=== PATIENT | female | born 1985 | race Caucasian/White ===

== ENCOUNTER 2024-09-05 17:46 | Emergency (ER) | payer SELFPAY ==
[2024-09-05 20:36] LABS: Absolute Basophils 0.1 K/uL (0-0.5); Absolute Eosinophils 0.2 K/uL (0-0.5); Absolute Lymphocytes (CBC) 2.7 K/uL (0.7-4.9); Absolute Monocytes 1.1 K/uL (0.1-1.3); Absolute Neutrophil 9.2 K/uL (1.8-8.0); Basophils % 0.8 % (0-1.3); Eosinophils % 1.3 % (0-4.4); Hematocrit 43.3 % (36.0-45.0); Hemoglobin 14.6 g/dL (12.0-15.0); Lymphocytes % 20.2 % (15.3-44.8); MCH 29.2 pg (27.0-35.0); MCHC 33.8 g/dL (32.0-36.0); MCV 86.3 fL (80-100); MPV 8.8 fL (7.6-11.3); Monocytes % 8.3 % (3.3-12.3); Neutrophils % 69.4 % (41.7-73.7); Nucleated Red Blood Cells % 0.1 % (0-0); Platelets 270 thou/uL (152-406); RBC Red Blood Cell Count 5.02 M/uL (3.86-4.86); Red Cell Distribution Width 13.6 % (12.1-15.2)
[2024-09-05 20:53] LABS: Specific Gravity 1.021 (1.005-1.030)
[2024-09-05 21:00] LABS: Anion Gap 7.5 mEq/L (5.0-15.0)
[2024-09-05 21:12] LABS: Potassium 4.5 mEq/L (3.5-5.1)
--- NOTE | 2024-09-05 22:18 | RAD REPORT ---
Pelvis Complete CLINICAL INDICATION: Female 38 years old pain and vag bleed TECHNIQUE: Real-time ultrasonography of the pelvis was performed transabdominally. Color and spectral Doppler evaluation of the ovaries was performed. [id number]. COMPARISON: No prior exam. FINDINGS: UTERUS AND CERVIX: The uterus measures 8.6 x 4.4 x 4.8 cm (cervix to fundus x AP x transverse). The u terus is normal. No masses seen . The endometrium is normal,6 mm thickness. RIGHT OVARY: Normal The right ovary measures 4.6 x 2.2 x 2 cm with volume of 10.2 mL. Normal color an d spectral Doppler evaluation of the right ovary.. LEFT OVARY: Normal The left ovary measures 3.9 x 3.2 x 2.8 cm with volume of 18 mL. Normal Color an d spectral Doppler evaluation of the left ovary.. FREE FLUID: No free fluid. IMPRESSION: 1. No acute findings identified.. 2. Bilateral ovarian blood flow.
--- NOTE | 2024-09-05 22:49 | EDPHYS ---
Physician Documentation [facility] Name: Erma Renteria Age: 38 yrs Sex: Female : 1985 Arrival Date: 09/05/2024 Time: 17:46 Bed 10 Private MD: ED Physician Kurt Correa HPI: 09/05 19:09 This 38 yrs old Female presents to ER via Ambulatory with complaints of gb1 Vaginal Bleeding, Dizziness, Lightheaded. 19:09 38-year-old female with vaginal bleeding that started a few days ago she has gb1 been dizzy and more lightheaded. Patient states that she has irregular periods at her baseline. She is sexually active but not vaginal intercourse. Patient has not any control agents. She denies any vaginal discharge. She states that she has been bleeding for more than a few days and longer than usual. She is never seen an REGISTERED NURSE HH CASE MANAGER and she is never had a Pap smear. She is sexually active with her .. 09/06 19:14 Patient care assumed from Dr. Bonilla. Patient complains of some pelvic pain and sp4 moderate to heavy vaginal bleeding. Patient states she is desiring ultrasound to evaluate for ovarian cysts and other pelvic problems.. REGISTERED NURSE HH CASE MANAGER: 09/05 18:37 LMP 09/03/2024, unknown ap3 Historical: - Allergies: 18:34 No Known Allergies; ap3 - PMHx: 18:34 Anxiety; Asthma; Depression; ap3 - PSHx: 18:34 Cholecystectomy; ap3 - Immunization history:: Client reports having NOT received the Covid vaccine. Flu vaccine is not up to date. - Infectious Disease History:: Denies. - Social history:: Smoking status: Patient denies any tobacco usage or history of. - Family history:: not pertinent. ROS: 09/06 19:14 Constitutional: Negative for fever, chills, and weight loss, positive pelvic pain, sp4 positive vaginal bleeding, positive dizziness. All other systems are negative, Exam: 09/05 19:09 Constitutional: This is a well developed, well nourished patient who is awake, alert, gb1 and in no acute distress. Head/Face: Normocephalic, atraumatic. Eyes: Pupils equal round and reactive to light, extra-ocular motions intact. Lids and lashes normal. Conjunctiva and sclera are non-icteric and not injected. Cornea within normal limits. Periorbital areas with no swelling, redness, or edema. ENT: Nares patent. No nasal discharge, no septal abnormalities noted. Tympanic membranes are normal and external auditory canals are clear. Oropharynx with no redness, swelling, or masses, exudates, or evidence of obstruction, uvula midline. Mucous membranes moist. Neck: Trachea midline, no thyromegaly or masses palpated, and no cervical lymphadenopathy. Supple, full range of motion without nuchal rigidity, or vertebral point tenderness. No Meningismus. Chest/axilla: Normal chest wall appearance and motion. Nontender with no deformity. No lesions are appreciated. Cardiovascular: Regular rate and rhythm with a normal S1 and S2. No gallops, murmurs, or rubs. Normal PMI, no JVD. No pulse deficits. Respiratory: Lungs have equal breath sounds bilaterally, clear to auscultation and percussion. No rales, rhonchi or wheezes noted. No increased work of breathing, no retractions or nasal flaring. Back: No spinal tenderness. No costovertebral tenderness. Full range of motion. Skin: Warm, dry with normal turgor. Normal color with no rashes, no lesions, and no evidence of cellulitis. MS/ Extremity: Pulses equal, no cyanosis. Neurovascular intact. Full, normal range of motion. Neuro: Awake and alert, GCS 15, oriented to person, place, time, and situation. Cranial nerves II-XII grossly intact. Motor strength 5/5 in all extremities. Sensory grossly intact. Cerebellar exam normal. Normal gait. Vital Signs: 18:31 BP 152 / 94; Pulse 85; Resp 17; Temp 98.2; Pulse Ox 100% ; ap3 [place] Coma Score: 09/06 19:14 Eye Response: spontaneous(4). Motor Response: obeys commands(6). Verbal Response: sp4 oriented(5). Total: 15. MDM: 09/05 18:37 Medical Screening Exam initiated gb1 19:09 Differential diagnosis: cervicitis, dysfunctional uterine bleeding, dysmenorrhea, gb1 menorrhea, uterine fibroids. 19:26 Data reviewed: vital signs, nurses notes. ED course: At this time concern for gb1 dysfunctional uterine bleeding. I will order a pelvic ultrasound and CBC with hemoglobin hematocrit. Patient is still in the waiting room and I am unable to perform pelvic exam I will transition this patient's care to Dr. Corrae at approximately 2000. Disposition per transvaginal ultrasound likely DUB and I will discharge her home with medroxyprogesterone. It does not appear at this time that the patient will need resuscitation with a blood transfusion. She is vitally stable with a blood pressure 152/94. Her heart rate is stable at 85. She does not appear to be suffering from critical blood loss anemia.. 09/06 19:14 Consideration of Admission/Observation Escalation of care including sp4 admission/observation considered. 09/05 17:53 Order name: Abo/rh Typing; Complete Time: 21:22 gb1 09/05 17:53 Order name: Basic Metabolic Panel; Complete Time: 21:22 gb1 09/05 17:53 Order name: CBC with Diff; Complete Time: 20:57 gb1 09/05 17:53 Order name: Test, Urine; Complete Time: 20:57 gb1 09/05 21:31 Order name: US Pelvis Complete; Complete Time: 22:44 sp4 09/05 17:53 Order name: IV Saline Lock; Complete Time: 20:24 gb1 09/05 17:53 Order name: Labs collected and sent; Complete Time: 20:24 gb1 09/05 17:53 Order name: NPO; Complete Time: 20:28 gb1 Administered Medications: No medications were administered Disposition: 19:16 Chart complete. sp4 Disposition Summary: 09/05/24 22:48 Discharge Ordered Notes: Location: Home sp4 Problem: new sp4 Symptoms: have improved sp4 Condition: Stable sp4 Diagnosis - Dysfunctional uterine bleeding, menorrhagia sp4 Followup: sp4 - With: Anat Soares MD - When: 7 - 10 days - Reason: Recheck today's complaints Discharge Instructions: - Discharge Summary Sheet sp4 - Menorrhagia, [id number]-[id number] sp4 Forms: - Patient Portal Instructions sp4 Signatures: Dispatcher [employer] Mary Jo Ruiz RN RN ap3 Kurt Correa MD MD sp4 Gracie Bonilla MD MD gb1 Corrections: (The following items were deleted from the chart) 09/05 17:53 17:53 ABO/RH TYPING+BB.LAB.BRZ ordered. EDCT EDCT 17:53 17:53 BASIC METABOLIC PANEL+C.LAB.BRZ ordered. EDCT EDCT 17:53 17:53 CBC+H.LAB.BRZ ordered. [facility] EDCT 17:53 17:53 Test, Urine+UC.LAB.BRZ ordered. [facility] EDCT 19:27 19:26 ED course: At this time concern for dysfunctional uterine bleeding. I will order gb1 a pelvic ultrasound and CBC with hemoglobin hematocrit. Patient is still in the waiting room and I am unable to perform pelvic exam I will transition this patient's care to Dr. Cotton at approximately 2000. Disposition per transvaginal ultrasound likely DU B and I will discharge her home with medroxyprogesterone.. gb1
--- NOTE | 2024-09-05 22:49 | ER ---
Nurse's Notes [facility] Name: Erma Renteria Age: 38 yrs Sex: Female : 1985 Arrival Date: 09/05/2024 Time: 17:46 Bed 10 Private MD: Diagnosis: Dysfunctional uterine bleeding, menorrhagia Presentation: 09/05 18:31 Chief complaint: Patient states: she has been having heavy vaginal bleeding since ap3 Satur night. patient reports she is filling tampons in an hour or less. patient reports she is starting to feel light headed since yesterday. Coronavirus screen: At this time, the client does not indicate any symptoms associated with coronavirus-19. Ebola Screen: No symptoms or risks identified at this time. Initial Sepsis Screen: Does the patient meet any 2 criteria? No. Patient's initial sepsis screen is negative. Does the patient have a suspected source of infection? No. Patient's initial sepsis screen is negative. Risk Assessment: Do you want to hurt yourself or someone else? Patient reports no desire to harm self or others. Onset of symptoms was September 03, 2024. 18:31 Method Of Arrival: Ambulatory ap3 18:31 Acuity: [id number] 3 ap3 Triage Assessment: 18:35 General: Appears in no apparent distress. Behavior is calm, cooperative, appropriate ap3 for age. Pain: Complains of pain in abdomen Quality of pain is described as crampy. Neuro: Level of Consciousness is awake, alert, obeys commands, Oriented to person, place, time, situation, Reports weakness. Cardiovascular: Patient's skin is warm and dry. Respiratory: Airway is patent Respiratory effort is even, unlabored. : Reports vaginal bleeding that is with clots, heavy flow. HELPDESK MANAGER: 18:37 LMP 09/03/2024, unknown ap3 Historical: - Allergies: 18:34 No Known Allergies; ap3 - PMHx: 18:34 Anxiety; Asthma; Depression; ap3 - PSHx: 18:34 Cholecystectomy; ap3 - Immunization history:: Client reports having NOT received the Covid vaccine. Flu vaccine is not up to date. - Infectious Disease History:: Denies. - Social history:: Smoking status: Patient denies any tobacco usage or history of. - Family history:: not pertinent. Screenin:35 Abuse screen: Denies threats or abuse. Nutritional screening: No deficits noted. ap3 Tuberculosis screening: No symptoms or risk factors identified. 09/06 00:36 [facility] ED Fall Risk Assessment (Adult) History of falling in the last 3 months, vc1 including since admission No falls in past 3 months (0 pts) Confusion or Disorientation No (0 pts) Intoxicated or Sedated No (0 pts) Impaired Gait No (0 pts) Mobility Assist Device Used No (0 pt) Altered Elimination Score/Fall Risk Level 0 - 2 = Low Risk Oriented to surroundings, Maintained a safe environment, Educated pt \T\ family on fall prevention, incl call for assistance when getting out of bed. Vital Signs: 09/05 18:31 BP 152 / 94; Pulse 85; Resp 17; Temp 98.2; Pulse Ox 100% ; ap3 [place] Coma Score: 09/06 19:14 Eye Response: spontaneous(4). Motor Response: obeys commands(6). Verbal Response: sp4 oriented(5). Total: 15. ED Course: 09/05 17:50 Patient arrived in ED. cj3 17:51 Gracie Bonilla MD is Attending Physician. gb1 18:34 Triage completed. ap3 18:35 Arm band placed on right wrist. ap3 20:02 Attending Physician role handed off by Gracie Bonilla MD sp4 20:02 Kurt Correa MD is Attending Physician. sp4 20:24 Initial lab(s) drawn, by mt, sent to lab. Inserted saline lock: 20 gauge in left rk3 antecubital area, using aseptic technique. Blood collected. Flushed with 10 mL NS. 22:12 US Pelvis Complete In Process Unspecified. EDMS 22:47 Anat Soares MD is Referral Physician. sp4 09/06 00:36 Munira Herrera, GER is Primary Nurse. vc1 00:37 No provider procedures requiring assistance completed. IV discontinued, intact, vc1 bleeding controlled, No redness/swelling at site. Pressure dressing applied. 00:38 Patient has correct armband on for positive identification. Bed in low position. Call vc1 light in reach. Provided Education on: f/u with OB. Administered Medications: No medications were administered Medication: 00:37 VIS not applicable for this client. vc1 Outcome: 09/05 22:48 Discharge ordered by MD. che 09/06 00:37 Discharged to home ambulatory, vc1 Condition: stable Discharge instructions given to patient, Instructed on discharge instructions, follow up and referral plans. medication usage, Demonstrated understanding of instructions, follow-up care, medications, 00:38 Patient left the ED. vc1 Signatures: Dispatcher [employer] EDMary Jo Betancur RN RN ap3 Munira Herrera RN RN vc1 Kurt Correa MD MD sp4 Gracie Bonilla MD MD gb1 Jaime Barron rk3 Haley Mendoza cj3
[2024-09-06 00:51] VITALS: BP 152/94; TEMP 98.2; O2SAT 100
== END 2024-09-06 00:38 | disposition home or self-care (01) ==
LOC: ER 17:46
DX: N92.0 Excessive and frequent menstruation with regular cycle (principal)
CPT/HCPCS: 36415; 76856; 80048; 81025; 85025; 86900; 86901